=== PATIENT | female | born 1985 | race Caucasian/White ===

== ENCOUNTER 2017-01-16 12:39 | Emergency (ER) | payer OTHER ==
[~2017-01-16] VITALS: Ht 162.5 cm; Wt 54.4 kg
[~2017-01-16 12:39] MED LIST: DAYPRO600 M1 PO; MOTRIN800 MG PO; PEN-VEE K500 MG PO; PENICILLIN VK500 MG PO; ROBAXIN750 MG PO; SUBOXONE 8 MG-21 TA1 SL
[2017-01-16] MEDS ORDERED: PENICILLIN-VK500 MG PO (13:03)
== END 2017-01-16 13:27 | disposition home or self-care (01) ==
LOC: ED 12:39
DX: K02.9 Dental caries, unspecified (principal); F17.200 Nicotine dependence, unspecified, uncomplicated

== ENCOUNTER 2018-11-24 19:19 | Emergency (ER) | payer SELFPAY ==
[~2018-11-24] VITALS: Ht 162.5 cm; Wt 57.2 kg
[~2018-11-24 19:19] MED LIST changes: +PENICILLIN-VK500 MG PO
[2018-11-24 19:41] LABS: BASO # 0.1 10*3/uL (0.0-0.1); BASO % 0.6 % (0.0-1.0); EOS # 0.1 10*3/uL (0.0-0.4); EOS % 1.3 % (1.0-4.0); HEMATOCRIT 35.1 % (37.0-47.0); LYMPH # 2.3 10*3/uL (1.3-4.4); LYMPH % 26.4 % (27.0-41.0); MEAN CORPUSCULAR HGB CONC 31.3 g/dl (33.0-37.0); MEAN PLATELET VOLUME 9.4 fl (9.6-12.3); MONO # 0.4 10*3/uL (0.1-1.0); MONO % 5.1 % (3.0-9.0); NEUT # 5.7 10*3/uL (2.3-7.9); NEUT % 66.4 % (47.0-73.0); PLATELET COUNT AUTOMATED 135 10*3/uL (130-400); RED BLOOD COUNT 4.08 10*6/uL (4.10-5.10); RED CELL DISTRI WIDTH 15.6 % (0-14.5); WHITE BLOOD COUNT 8.5 10*3/uL (4.8-10.8)
[2018-11-24 19:51] LABS: BILIRUBIN NEGATIVE (NEGATIVE); BLOOD 3+ (NEGATIVE); CLARITY CLEAR (CLEAR); COLOR YELLOW (YELLOW); GLUCOSE TRACE (NEGATIVE); KETONE NEGATIVE (NEGATIVE); LEUKO ESTERASE NEGATIVE (NEGATIVE); NITRITE NEGATIVE (NEGATIVE); SPECIFIC GRAVITY >= 1.030 (1.005-1.030); UROBILINOGEN 0.2 E.U./dl (0.2-1.0)
[2018-11-24 19:51] LABS: INTERNATIONAL NORM RATIO 0.9 (2.0-3.5)
[2018-11-24 19:55] LABS: ALBUMIN 3.7 gm/dl (3.1-4.5); ALKALINE PHOSPHATASE 59 U/L (45-117); BUN 12 mg/dl (7-24); CHLORIDE 108 mmol/L (98-107); CREATININE 0.74 mg/dL (0.55-1.02); POTASSIUM 3.4 mmol/L (3.5-5.1); SGOT/AST 7 IU/L (3-35); SGPT/ALT 15 U/L (12-78); SODIUM 142 mmol/L (136-145)
[2018-11-24 19:57] LABS: BETA-HCG, QUANT < 1.0 mIU/mL (1-3)
[2018-11-24 20:00] LABS: BACTERIA 1+; MUCOUS TRACE; RBC 16-20 rbc/hpf (0-2); WBC 0-2 wbc/hpf (0-5)
== END 2018-11-24 21:02 | disposition home or self-care (01) ==
LOC: ED 19:19
PROVIDERS: Nurse Practitioner Family
DX: N93.9 Abnormal uterine and vaginal bleeding, unspecified (principal); Z79.2 Long term (current) use of antibiotics

== ENCOUNTER 2020-07-11 14:49 | Inpatient (IN) | payer OTHER ==
[~2020-07-11] VITALS: Ht 162.6 cm; Wt 64.9 kg
[2020-07-11 16:00] VITALS: BP 108/77
[2020-07-11 16:37] LABS: BASO % 0.4 % (0.0-1.0); EOS # 0.1 10*3/uL (0.0-0.4); EOS % 0.5 % (1.0-4.0); HEMATOCRIT 46.4 % (37.0-47.0); LYMPH # 1.7 10*3/uL (1.3-4.4); LYMPH % 18.2 % (27.0-41.0); MEAN CELL VOLUME 86.7 fl (81.0-99.0); MEAN CORPUSCULAR HGB CONC 32.3 g/dl (33.0-37.0); MEAN PLATELET VOLUME 9.1 fl (9.6-12.3); MONO # 0.4 10*3/uL (0.1-1.0); MONO % 4.4 % (3.0-9.0); NEUT # 7.1 10*3/uL (2.3-7.9); NEUT % 76.2 % (47.0-73.0); PLATELET COUNT AUTOMATED 199 10*3/uL (130-400); RED BLOOD COUNT 5.35 10*6/uL (4.10-5.10); RED CELL DISTRI WIDTH 13.6 % (0-14.5); WHITE BLOOD COUNT 9.4 10*3/uL (4.8-10.8)
[2020-07-11 16:52] LABS: ALBUMIN 3.9 gm/dl (3.1-4.5); ALKALINE PHOSPHATASE 84 U/L (45-117); BUN 13 mg/dl (7-24); CHLORIDE 107 mmol/L (98-107); CREATININE 0.75 mg/dL (0.55-1.02); POTASSIUM 3.9 mmol/L (3.5-5.1); SGOT/AST 20 IU/L (3-35); SGPT/ALT 43 U/L (12-78); SODIUM 138 mmol/L (136-145)
[2020-07-11 16:55] LABS: BETA-HCG, QUANT < 1.0 mIU/mL (1-3); ETHYL ALCOHOL < 3.0 mg/dl (<3)
[2020-07-11 17:22] LABS: BILIRUBIN Negative (Negative); BLOOD 2+ (Negative); CLARITY Clear (Clear); COLOR Yellow (Yellow); GLUCOSE Negative (Negative); KETONE 1+ (Negative); LEUKO ESTERASE Negative (Negative); NITRITE Negative (Negative); SPECIFIC GRAVITY >= 1.030 (1.001-1.030)
[2020-07-11 17:30] LABS: URINE AMPHETAMINES < 1000 (1000ng/ml); URINE BARBITURATES < 200 (200ng/ml); URINE BENZODIAZEPINES < 200 (200ng/ml); URINE CANNABINOIDS (THC) > 50 (50ng/ml); URINE COCAINE > 300 (300ng/ml); URINE METHADONE < 300 (300ng/ml); URINE OPIATES > 300 (300ng/ml)
[2020-07-11 17:31] LABS: BACTERIA TRACE; MUCOUS TRACE; RBC 16-20 rbc/hpf (0-2); WBC 0-2 wbc/hpf (0-5)
[2020-07-11 17:32] LABS: URINE PHENCYCLIDINE < 25 (25ng/ml)
[2020-07-11 20:00] VITALS: BP 111/71
[2020-07-12] VITALS: BP 104/63
[2020-07-12 08:00] VITALS: BP 106/56
[2020-07-12 12:00] VITALS: BP 100/64
[2020-07-12 16:00] VITALS: BP 109/70
[2020-07-12 20:00] VITALS: BP 108/70
[2020-07-13] VITALS: BP 103/71
[2020-07-13 08:00] VITALS: BP 111/74
[2020-07-13 12:00] VITALS: BP 123/80
[2020-07-13 16:00] VITALS: BP 111/63
== END 2020-07-13 17:40 | disposition left against medical advice (07) | DRG 770 ==
LOC: 5E 14:49
PROVIDERS: Internal Medicine; ADMIT Family Medicine; ATTEND Family Medicine
DX: F11.13 Opioid abuse with withdrawal (principal); F13.139 Sedative, hypnotic or anxiolytic abuse with withdrawal, unspecified; F14.90 Cocaine use, unspecified, uncomplicated; F17.210 Nicotine dependence, cigarettes, uncomplicated; F19.10 Other psychoactive substance abuse, uncomplicated; F41.9 Anxiety disorder, unspecified; R25.1 Tremor, unspecified; Z53.29 Procedure and treatment not carried out because of patient's decision for other reasons; Z71.6 Tobacco abuse counseling

== ENCOUNTER 2021-01-22 17:48 | Emergency (ER) | payer OTHER ==
[~2021-01-22] VITALS: Ht 162.5 cm; Wt 63.5 kg
[2021-01-22] MEDS ORDERED: SEPTDS PO (18:25)
[2021-01-22] MEDS ORDERED: CEPHALEXIN500 M1 PO (18:25)
== END 2021-01-22 18:32 | disposition home or self-care (01) ==
LOC: ED 17:48
DX: L02.412 Cutaneous abscess of left axilla (principal); K13.70 Unspecified lesions of oral mucosa; R11.2 Nausea with vomiting, unspecified; F17.210 Nicotine dependence, cigarettes, uncomplicated

== ENCOUNTER 2022-03-28 12:03 | Emergency (ER) | payer OTHER ==
[~2022-03-28] VITALS: Ht 162.5 cm; Wt 59.0 kg
[~2022-03-28 12:03] MED LIST changes: +CEPHALEXIN500 M1 PO; +SEPTDS PO
[2022-03-28] MEDS ORDERED: VIBRAMYCIN100 MG PO (13:53)
== END 2022-03-28 14:00 | disposition home or self-care (01) ==
LOC: ED 12:03
DX: L02.416 Cutaneous abscess of left lower limb (principal); F17.210 Nicotine dependence, cigarettes, uncomplicated

== ENCOUNTER 2022-06-04 09:12 | Emergency (ER) | payer OTHER ==
[~2022-06-04] VITALS: Wt 52.2 kg
[~2022-06-04 09:12] MED LIST changes: +VIBRAMYCIN100 MG PO
[2022-06-04 10:07] LABS: BASO # 0.1 10*3/uL (0.0-0.1); BASO % 0.7 % (0.0-1.0); EOS # 0.1 10*3/uL (0.0-0.4); EOS % 0.9 % (1.0-4.0); HEMATOCRIT 33.9 % (37.0-47.0); LYMPH # 2.1 10*3/uL (1.3-4.4); LYMPH % 23.2 % (27.0-41.0); MEAN CELL VOLUME 85.2 fl (81.0-99.0); MEAN CORPUSCULAR HGB 26.6 pg (27.0-31.0); MEAN CORPUSCULAR HGB CONC 31.3 g/dl (33.0-37.0); MEAN PLATELET VOLUME 7.5 fl (9.6-12.3); MONO # 0.6 10*3/uL (0.1-1.0); MONO % 6.4 % (3.0-9.0); NEUT # 6.3 10*3/uL (2.3-7.9); NEUT % 68.5 % (47.0-73.0); PLATELET COUNT AUTOMATED 214 10*3/uL (130-400); RED BLOOD COUNT 3.98 10*6/uL (4.10-5.10); RED CELL DISTRI WIDTH 16.8 % (0-14.5); WHITE BLOOD COUNT 9.1 10*3/uL (4.8-10.8)
[2022-06-04 10:22] LABS: ALKALINE PHOSPHATASE 149 U/L (46-116); BUN 16 mg/dl (9-23); CHLORIDE 95 mmol/L (98-107); CREATININE 1.22 mg/dL (0.55-1.02); POTASSIUM 4.5 mmol/L (3.4-5.1); SGPT/ALT 113 U/L (10-49); SODIUM 129 mmol/L (136-145); TOTAL PROTEIN 8.6 gm/dL (6.0-8.0)
[2022-06-04 10:28] LABS: BILIRUBIN Negative (Negative); BLOOD Negative (Negative); CLARITY Cloudy (Clear); COLOR Yellow (Yellow); GLUCOSE Negative (Negative); KETONE Negative (Negative); LEUKO ESTERASE Negative (Negative); NITRITE Negative (Negative); UROBILINOGEN 0.2 E.U./dl (0.0-1.0)
[2022-06-04 10:43] LABS: URINE AMPHETAMINES Positive (1000ng/ml); URINE BARBITURATES Negative (200ng/ml); URINE BENZODIAZEPINES Negative (200ng/ml); URINE CANNABINOIDS (THC) Negative (50ng/ml); URINE COCAINE Negative (300ng/ml); URINE METHADONE Negative (300ng/ml); URINE OPIATES Negative (300ng/ml); URINE PHENCYCLIDINE Negative (25ng/ml)
[2022-06-04 10:56] LABS: BACTERIA TRACE; CALCIUM OXALATE CRYSTALS 1+; WBC 0-2 wbc/hpf (0-5)
[2022-06-04 10:57] LABS: MUCOUS 1+
[2022-06-04] MEDS ORDERED: FAMOTIDINE20 M1 PO (11:06)
[2022-06-04] MEDS ORDERED: FEROSUL325 M1 PO (11:07)
[2022-06-04] MEDS ORDERED: MELATONIN5 M6 PO (11:08)
[2022-06-04] MEDS ORDERED: SMZ/TMP DS 800-160 (11:10)
== END 2022-06-04 10:33 | disposition home or self-care (01) ==
LOC: ED 09:12
PROVIDERS: Student in an Organized Health Care Education/Training Program
DX: M79.10 Myalgia, unspecified site (principal); F12.90 Cannabis use, unspecified, uncomplicated; F17.210 Nicotine dependence, cigarettes, uncomplicated

== ENCOUNTER 2022-06-12 02:41 | Emergency (ER) | payer OTHER ==
[~2022-06-12] VITALS: Ht 162.5 cm; Wt 52.2 kg
[~2022-06-12 02:41] MED LIST changes: +FAMOTIDINE20 M1 PO; +FEROSUL325 M1 PO; +MELATONIN5 M6 PO; +SMZ/TMP DS 800-160
[2022-06-12 04:09] LABS: BASO % 0.7 % (0.0-1.0); EOS # 0.3 10*3/uL (0.0-0.4); EOS % 4.8 % (1.0-4.0); HEMATOCRIT 31.2 % (37.0-47.0); LYMPH # 2.4 10*3/uL (1.3-4.4); LYMPH % 39.9 % (27.0-41.0); MEAN CORPUSCULAR HGB 26.4 pg (27.0-31.0); MEAN CORPUSCULAR HGB CONC 31.1 g/dl (33.0-37.0); MEAN PLATELET VOLUME 7.7 fl (9.6-12.3); MONO # 0.5 10*3/uL (0.1-1.0); MONO % 8.7 % (3.0-9.0); NEUT # 2.8 10*3/uL (2.3-7.9); NEUT % 45.4 % (47.0-73.0); PLATELET COUNT AUTOMATED 137 10*3/uL (130-400); RED BLOOD COUNT 3.67 10*6/uL (4.10-5.10); RED CELL DISTRI WIDTH 16.6 % (0-14.5); WHITE BLOOD COUNT 6.1 10*3/uL (4.8-10.8)
[2022-06-12 04:26] LABS: ACT PARTIAL THROMBO TIME 36.1 SECONDS (20.0-32.1)
[2022-06-12 04:31] LABS: ALKALINE PHOSPHATASE 132 U/L (46-116); BUN 12 mg/dl (9-23); CHLORIDE 99 mmol/L (98-107); LIPASE 26 U/L (12-53); POTASSIUM 4.4 mmol/L (3.4-5.1); SGPT/ALT 116 U/L (10-49); TOTAL PROTEIN 7.8 gm/dL (6.0-8.0)
== END 2022-06-12 07:21 | disposition left against medical advice (07) ==
LOC: ED 02:41
PROVIDERS: Family Medicine
DX: I38 Endocarditis, valve unspecified (principal); F17.200 Nicotine dependence, unspecified, uncomplicated

== ENCOUNTER → 2022-09-22 | Outpatient (CLI) | payer OTHER | END | disposition home or self-care (01) | LOC: RAD 10:52 | PROVIDERS: ATTEND Surgery | DX: I49.1 Atrial premature depolarization (principal); I49.3 Ventricular premature depolarization; Z95.4 Presence of other heart-valve replacement ==

== ENCOUNTER 2024-08-28 16:48 | Emergency (ER) | payer OTHER ==
[~2024-08-28] VITALS: Ht 167.6 cm; Wt 68.0 kg
== END 2024-08-28 18:07 ==
LOC: ED 16:48
DX: Z04.6 Encounter for general psychiatric examination, requested by authority (principal); F41.9 Anxiety disorder, unspecified; F17.210 Nicotine dependence, cigarettes, uncomplicated; F11.10 Opioid abuse, uncomplicated; F14.90 Cocaine use, unspecified, uncomplicated; F19.10 Other psychoactive substance abuse, uncomplicated; F12.90 Cannabis use, unspecified, uncomplicated

== ENCOUNTER → 2025-03-06 | Outpatient (CLI) | payer MEDICAID ==
[2025-03-06 11:16] LABS: BASO # 0.0 10*3/uL (0.0-0.1); BASO % 0.6 % (0.0-1.0); EOS # 0.1 10*3/uL (0.0-0.4); EOS % 1.0 % (1.0-4.0); MEAN CELL VOLUME 91.6 fl (81.0-99.0); MEAN CORPUSCULAR HGB 30.2 pg (27.0-31.0); MEAN PLATELET VOLUME 9.0 fl (9.6-12.3); MONO # 0.4 10*3/uL (0.1-1.0); MONO % 6.2 % (3.0-9.0); NEUT # 4.5 10*3/uL (2.3-7.9); NEUT % 63.6 % (47.0-73.0); NUCLEATED RED BLOOD CELL 0.0 % (0.0-0.0); NUCLEATED RED BLOOD CELL 0.0 10*3/uL (0.0-0.0); PLATELET COUNT AUTOMATED 173 10*3/uL (130-400); RED CELL DISTRI WIDTH 12.9 % (0-14.5)
[2025-03-06 11:48] LABS: BUN 8 mg/dl (9-23); LDL CHOLESTEROL 79 mg/dL (9-159); SGPT/ALT 25 U/L (5-49); VITAMIN D, 25-HYDROXY 39.7 ng/mL (30-100)
[2025-03-07 05:06] LABS: HEPATITIS A AB, TOTAL Negative (Negative)
== END | disposition home or self-care (01) ==
LOC: LAB 10:23
PROVIDERS: ATTEND Registered Nurse
DX: Z13.220 Encounter for screening for lipoid disorders (principal); Z13.1 Encounter for screening for diabetes mellitus; Z11.59 Encounter for screening for other viral diseases; F19.20 Other psychoactive substance dependence, uncomplicated; Z91.419 Personal history of unspecified adult abuse